=== PATIENT | female | born 1950 | race Caucasian/White ===

== ENCOUNTER → 2017-01-23 | Day surgery (SDC) | payer OTHER ==
[~2017-01-23] MED LIST: Lactated Ringers 1,000 ML IV SCH; Propofol 200 MG/20 ML SDV IV ONE
[2017-01-23 10:10] VITALS: BP 126/58
--- NOTE | 2017-01-23 12:52 | OR ---
DATE OF OPERATION: 01/23/2017 PREOPERATIVE DIAGNOSIS: 1. CHRONIC GASTROESOPHAGEAL REFLUX DISEASE WITH DYSPHAGIA. 2. FOLLOWUP POLYPS. POSTOPERATIVE DIAGNOSIS: 1. CHRONIC GASTROESOPHAGEAL REFLUX DISEASE WITH DYSPHAGIA. 2. FOLLOWUP POLYPS. SURGEON: Trenton Feliz MD PROCEDURE: 1. ESOPHAGOGASTRODUODENOSCOPY WITH BIOPSIES X3, JINA. 2. FULL-LENGTH COLONOSCOPY. ANESTHESIA: PULLMAN CONDUCTOR due to a chronic GERD. COMPLICATIONS: None. SPECIMEN: 1. Antral JINA. 2. Distal esophageal biopsy x3. FINDINGS: 1. Full-length EGD. 2. Moderate to large hiatal hernia with reflux esophagitis, grade 2. 3. Normal full-length colonoscopy. RECOMMENDATIONS: The patient should consider a consultation with Dr. Valencia for lap Suraj. Routine colonoscopy followup in 5 years. INDICATIONS: The patient has a history of some chronic reflux and she has been having some dysphagia. Kathryn sent her for EGD. She is also due for a followup colonoscopy due to history of polyp removal. DESCRIPTION OF PROCEDURE: The patient was prepped and draped, placed in the left lateral decubitus position. A lubricated Olympus gastroscope was inserted over a bit advanced cricopharyngeus area, easily intubated in the esophagus. Esophageal lining was benign until its most distal portion. The patient has reflux esophagitis with small ulceration grade 2 in severity. There was a moderate to large hiatal hernia associated with this with spontaneous reflux visualize. No signs of any stricturing, masses, or Arenas's changes. Three biopsies of the esophagitis were taken. The scope was passed into the stomach through the pylorus into the third portion of duodenum. The duodenal bulb, second and third portion of duodenum were unremarkable. The scope was brought back into the stomach, retroflexed, hernia easily visualized from below. The rest of the upper fundus and cardia appeared unremarkable. Upon straightening, thorough evaluation of the rest of the gastric lining include the mid to distal fundus and antrum were unremarkable. A biopsy was taken for JINA testing. Air was then suctioned from the stomach. The scope removed without complication. A lubricated Olympus colonoscope was inserted and easily advanced to the cecum. Direct visualization of the ileocecal valve and appendiceal orifice was accomplished. The bowel prep was marginal, especially in the right colon, there was a lot of liquid stool throughout very hard to see and some of this was able to be suctioned, a few areas not. Upon withdrawal throughout the entire length of the colon, I could find no signs of any polyp recurrence. There were no masses, ulcerations, or bleeding sites. No vascular abnormalities or signs of colitis. No diverticular disease was seen. Rectal vault was unremarkable. Retroflexion scope in the rectum showed no perianal lesions. Air was then suctioned. Scope removed without complications. RACHELL/MAI /[id number]
== END ==
LOC: CC.SDS 08:30
PROVIDERS: ATTEND Family Medicine
DX: Z12.11 Encounter for screening for malignant neoplasm of colon (principal); K44.9 Diaphragmatic hernia without obstruction or gangrene; K21.0 Gastro-esophageal reflux disease with esophagitis; K22.10 Ulcer of esophagus without bleeding; Z88.1 Allergy status to other antibiotic agents; Z88.2 Allergy status to sulfonamides; F32.9 Major depressive disorder, single episode, unspecified; Z79.82 Long term (current) use of aspirin; Z79.899 Other long term (current) drug therapy; F41.9 Anxiety disorder, unspecified; Z96.659 Presence of unspecified artificial knee joint; Z72.0 Tobacco use
CPT/HCPCS: 43239; 45378; 87081; J2704; J7120

== ENCOUNTER → 2017-03-16 | Day surgery (SDC) | payer OTHER ==
[~2017-03-16] MED LIST changes: +Bupivacaine 0.25% 10 ML SDV INJECT ONE; +Clindamycin Phosphate in D5W 600 MG in Premix Bag 1 BAG IV ONE; +Ketorolac 30 MG/ML SDV IVPUSH ONE; -Lactated Ringers 1,000 ML IV SCH; +Lidocaine 2% 20 ML MDV INJECT ONE; +Midazolam 1 MG/ML 2 ML SDV IV ONE; +Morphine 4 MG/ML Syringe IVPUSH PRN; +Ondansetron 4 MG/2 ML SDV IV ONE; +Ondansetron 4 MG/2 ML SDV IVPUSH PRN; +Rocuronium 50 MG/5 ML Vial IV ONE; +Succinylcholine 200 MG/10 ML MDV IV ONE; +fentaNYL 100 MCG/2 ML SDV IV ONE
[2017-03-16] MEDS: Lactated Ringers 1,000 ML IV SCH ×2 (09:02→14:43)
[2017-03-16] MEDS: Acetaminophen/HYDROcodone 325-5 MG Tab PO PRN (20:08)
[2017-03-17] MEDS: Acetaminophen/HYDROcodone 325-5 MG Tab PO PRN ×2 (00:31→07:55)
[2017-03-17 08:23] VITALS: BP 119/64
--- NOTE | 2017-03-17 09:12 | OR ---
DATE OF OPERATION: 03/16/2017 PREOPERATIVE DIAGNOSIS: LARGE HIATAL HERNIA WITH SEVERE GASTROESOPHAGEAL REFLUX DISEASE. POSTOPERATIVE DIAGNOSIS: LARGE HIATAL HERNIA WITH SEVERE GASTROESOPHAGEAL REFLUX DISEASE. SURGEON: Patrick Valencia MD PROCEDURE: LAPAROSCOPIC SURAJ FUNDOPLICATION. ANESTHESIA: General. INDICATIONS: The patient has had upper GI endoscopy. The patient does show evidence of very severe reflux. The patient even wakes up in the middle of the night with reflux problems. The patient has been on medications without much relief. The patient was given the option for laparoscopic Suraj fundoplication. The procedure and risks were all explained to the patient, she understands. DESCRIPTION OF PROCEDURE: After the patient was anesthetized satisfactorily, the patient's abdomen was prepped with iodoform. The patient was given sterile drapes. A small skin incision was made in the midline. It was carried down through the skin, subcutaneous tissue, down through deep fascia. Deep fascia and peritoneum were opened. An 11-mm blunt trocar was introduced. CO2 gas was insufflated. Then under direct camera vision, two 12-mm trocars were introduced in the right upper quadrant. The patient had quite a few adhesions in the left upper quadrant between the omentum and the parietal peritoneum. These adhesions were taken down with the LigaSure. Then, two 12-mm trocars were also introduced in the left upper quadrant. The patient had has a large hiatal hernia. The liver retractor was introduced and left lobe of the liver was retracted to one side. Then using LigaSure, gastrohepatic ligament was divided. Then dissection was done around the right crux of the diaphragm. All the adhesions over here were taken down. Then hiatal hernia was dissected out from within the hiatus and all the adhesions were taken down and the esophagus was brought back into the peritoneal cavity. There was quite a large hiatal hernia present. Then adhesions were taken off from the left crux of the diaphragm between these hiatal hernia and the left crux of the diaphragm, and these adhesions were also mobilized. Then, a window was created connecting the right side with the left side behind the esophagus. Then short gastric vessels were divided around the fundus of the stomach. Then fundus was brought around through the window connecting the right side to the left side to do laparoscopic Suraj fundoplication. Then using 0 Ethibond sutures, sutures were placed between stomach, esophagus, and stomach, and these were ligated satisfactorily. Three stitches were placed to do Suraj fundoplication. Then hiatus was closed before doing the Suraj fundoplication, a size 56-[place] Paulino dilator was introduced. The light was visualized and then the Suraj fundoplication was done. Then, the hiatus was closed with 0 Ethibond interrupted sutures. Then, bleeding was examined. It was checked. There was no evidence of any active bleeding. The liver retractor was removed. CO2 gas was desufflated out. Various trocars were removed. Then, the dilator had already been removed. The deep fascia was closed with 0 Ethibond running sutures. Skin was closed with jak. The patient was given sterile dressing. She tolerated the procedure well and left the operating room in satisfactory condition. NANCY /[id number]
== END ==
LOC: CC.SDS 08:30
PROVIDERS: ATTEND Surgery
DX: K44.9 Diaphragmatic hernia without obstruction or gangrene (principal); K21.9 Gastro-esophageal reflux disease without esophagitis; F41.9 Anxiety disorder, unspecified; F32.9 Major depressive disorder, single episode, unspecified; J30.9 Allergic rhinitis, unspecified; Z88.1 Allergy status to other antibiotic agents; Z88.2 Allergy status to sulfonamides; Z88.8 Allergy status to other drugs, medicaments and biological substances; Z96.659 Presence of unspecified artificial knee joint; Z72.0 Tobacco use
CPT/HCPCS: 43280; A9270; J0330; J1885; J2250; J2270; J2405; J2704; J3010; J7120

== ENCOUNTER 2017-11-28 21:55 | Emergency (ER) | payer OTHER ==
[2017-11-28] MEDS ORDERED: Ondansetron 4 MG in Sodium Chloride 0.9% 50 ML IV PRN (22:20)
[2017-11-28] MEDS: HYDROmorphone 1 MG/ML Syringe IVPUSH PRN ×2 (22:31→22:50)
--- NOTE | 2017-11-28 22:51 | EDM.PDOC ---
ED HPI GENERAL MEDICAL PROBLEM - General Chief Complaint: Lower Extremity Injury/Pain Stated Complaint: right knee swelling after fall Time Seen by Provider: 11/28/17 22:00 Source of Information: Reports: Patient History Limitations: Reports: No Limitations - History of Present Illness INITIAL COMMENTS - FREE TEXT/NARRATIVE: Patient states she was waling down stairs at home when her leg buckled and twisted under her causing her to fall. she has severe pain to the right thigh that worsens with movement. 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 (see below) (inflatable leg splint) Right Knee Pain Score (Numeric/FACES): 7 - Related Data Allergies Allergy/AdvReac Type Severity Reaction Status Date / Time cephalexin Allergy Cannot Verified 11/28/17 22:02 Remember sulfamethoxazole Allergy Cannot Verified 11/28/17 22:02 [From Bactrim] Remember trimethoprim [From Bactrim] Allergy Cannot Verified 11/28/17 22:02 Remember Home Meds: Home Meds Calcium Carbonate [Tums] 1 tab PO DAILY PRN 05/23/15 [History] PARoxetine HCl [Paroxetine HCl] 20 mg PO DAILY 05/23/15 [History] Multivitamin [Multivitamins] 1 tab PO DAILY 11/15/15 [History] Past Medical History HEENT History: Reports: Impaired Vision Gastrointestinal History: Reports: GERD Psychiatric History: Reports: Anxiety - Past Surgical History GI Surgical History: Reports: Hernia Repair/Other Musculoskeletal Surgical History: Reports: Knee Replacement Social & Family History - Tobacco Use Smoking Status *Q: Never Smoker Second Hand Smoke Exposure: No Review of Systems - Review of Systems Review Of Systems: See Below Constitutional: Reports: No Symptoms Eyes: Reports: No Symptoms Ears: Reports: No Symptoms Nose: Reports: No Symptoms Mouth/Throat: Reports: No Symptoms Respiratory: Reports: No Symptoms Cardiovascular: Reports: No Symptoms GI/Abdominal: Reports: No Symptoms Musculoskeletal: Reports: Leg Pain, Joint Swelling Skin: Reports: Erythema Neurological: Reports: No Symptoms Psychiatric: Reports: No Symptoms ED EXAM, GENERAL - Physical Exam Exam: See Below Free Text/Narrative:: Deformity and swelling noted just above right knee. Exam Limited By: Physical Impairment General Appearance: Alert, WD/WN Head: Atraumatic Neck: Normal Inspection Respiratory/Chest: No Respiratory Distress Cardiovascular: Normal Peripheral Pulses GI/Abdominal: Soft, Non-Tender Rectal (Female) Exam: Normal Exam Extremities: Joint Swelling, Leg Pain, Limited Range of Motion, Redness, Other ( Deformity of leg above knee. good caplilary refill noted in right foot with palpable dorsalis pulse.) Skin Exam: Warm, Dry Front/Back Body Diagram: 1 - Fontana and redness noted. Course - Vital Signs Last Recorded V/S: Last Vital Signs Temp 98.3 F 11/28/17 22:07 Pulse 63 11/28/17 22:07 Resp 16 11/28/17 22:07 BP 117/54 L 11/28/17 22:07 Pulse Ox 97 11/28/17 22:07 - Orders/Labs/Meds Orders: Active Orders 24 hr Category Date Time Status Knee 1V or 2V Rt [CR] Stat Exams 11/28/17 22:13 Taken CBC W/O DIFF,HEMOGRAM [HEME] Stat Lab 11/28/17 22:20 Ordered COMPREHENSIVE METABOLIC PN,CMP [CHEM] Stat Lab 11/28/17 22:20 Ordered HYDROmorphone [Dilaudid] Med 11/28/17 22:20 Active 0.5 mg IVPUSH Q1H PRN Ondansetron [Zofran] 4 mg Med 11/28/17 22:20 Ordered Sodium Chloride 0.9% [Normal Saline] 50 ml IV Q8H Medication Orders Hydromorphone HCl (Dilaudid) 0.5 mg IVPUSH Q1H PRN PRN Reason: Pain Last Admin: 11/28/17 22:31 Dose: 0.5 mg Ondansetron HCl 4 mg/ Sodium (Chloride) 52 mls @ 100 mls/hr IV Q8H PRN PRN Reason: Nausea Last Admin: 11/28/17 22:30 Dose: 100 mls/hr Meds: Medications Generic Name Dose Route Start Last Admin Trade Name Freq PRN Reason Stop Dose Admin Hydromorphone HCl 0.5 mg 11/28/17 22:20 11/28/17 22:31 Dilaudid IVPUSH 0.5 mg Q1H PRN Administration Pain Ondansetron HCl 4 mg/ Sodium 52 mls @ 100 mls/hr 11/28/17 22:20 11/28/17 22: 30 Chloride IV 100 mls/hr Q8H PRN Administration Nausea Departure - Departure Time of Disposition: 22:51 (Transfer arranged to [facility] to the care of Dr. Markham for direct admit.) Disposition: DC/Tfer to [facility] 02 Condition: Good Clinical Impression: Closed fracture of femur - Discharge Information Instructions: Femoral Shaft Fracture Forms: ED Department Discharge - My Orders Last 24 Hours: My Active Orders 11/28/17 22:13 Knee 1V or 2V Rt [CR] Stat 11/28/17 22:20 CBC W/O DIFF,HEMOGRAM [HEME] Stat COMPREHENSIVE METABOLIC PN,CMP [CHEM] Stat HYDROmorphone [Dilaudid] 0.5 mg IVPUSH Q1H PRN Ondansetron [Zofran] 4 mg Sodium Chloride 0.9% [Normal Saline] 50 ml IV Q8H - Assessment/Plan Last 24 Hours: My Active Orders 11/28/17 22:13 Knee 1V or 2V Rt [CR] Stat 11/28/17 22:20 CBC W/O DIFF,HEMOGRAM [HEME] Stat COMPREHENSIVE METABOLIC PN,CMP [CHEM] Stat HYDROmorphone [Dilaudid] 0.5 mg IVPUSH Q1H PRN Ondansetron [Zofran] 4 mg Sodium Chloride 0.9% [Normal Saline] 50 ml IV Q8H
[2017-11-28 22:59] VITALS: BP 107/67
[2017-11-28 23:33] LABS: CHLORIDE,CL 104 mEq/L (98-106); SODIUM,NA 141 mEq/L (136-145)
== END 2017-11-28 23:20 ==
LOC: CC.ED 21:55 → SUPCPDRO 21:55 → CC.ED 23:20
DX: M97.11XA Periprosthetic fracture around internal prosthetic right knee joint, initial encounter (principal); F41.9 Anxiety disorder, unspecified; Z88.1 Allergy status to other antibiotic agents; Z79.899 Other long term (current) drug therapy; Z96.651 Presence of right artificial knee joint; W10.9XXA Fall (on) (from) unspecified stairs and steps, initial encounter; Y92.009 Unspecified place in unspecified non-institutional (private) residence as the place of occurrence of the external cause
CPT/HCPCS: 36415; 73560-RT; 80053; 85027; 85610; 93005; 96365; 96375; 99285; J1170; J2405; J7050

== ENCOUNTER → 2022-06-27 | Day surgery (SDC) | payer MEDICARE, BC ==
[~2022-06-27] MED LIST changes: -Bupivacaine 0.25% 10 ML SDV INJECT ONE; -Clindamycin Phosphate in D5W 600 MG in Premix Bag 1 BAG IV ONE; +Ketamine 200 MG/20 ML MDV ONE; -Ketorolac 30 MG/ML SDV IVPUSH ONE; +Lactated Ringers 1,000 ML IV SCH; -Lidocaine 2% 20 ML MDV INJECT ONE; +Lidocaine 2% 20 ML MDV ONE; -Midazolam 1 MG/ML 2 ML SDV IV ONE; -Morphine 4 MG/ML Syringe IVPUSH PRN; -Ondansetron 4 MG/2 ML SDV IV ONE; -Ondansetron 4 MG/2 ML SDV IVPUSH PRN; -Propofol 200 MG/20 ML SDV IV ONE; +Propofol 200 MG/20 ML SDV ONE; -Rocuronium 50 MG/5 ML Vial IV ONE; -Succinylcholine 200 MG/10 ML MDV IV ONE; -fentaNYL 100 MCG/2 ML SDV IV ONE; +fentaNYL 50 MCG/ML SDV ONE
[2022-06-27 11:29] VITALS: BP 111/52; PULSE 55
== END ==
LOC: CC.SDS 08:07
PROVIDERS: ATTEND Family Medicine
DX: Z12.11 Encounter for screening for malignant neoplasm of colon (principal); K22.10 Ulcer of esophagus without bleeding; K57.30 Diverticulosis of large intestine without perforation or abscess without bleeding; K21.9 Gastro-esophageal reflux disease without esophagitis; K44.9 Diaphragmatic hernia without obstruction or gangrene; K22.2 Esophageal obstruction; F32.A Depression, unspecified; E55.9 Vitamin D deficiency, unspecified; M85.80 Other specified disorders of bone density and structure, unspecified site; F41.9 Anxiety disorder, unspecified; R82.90 Unspecified abnormal findings in urine; Z88.1 Allergy status to other antibiotic agents; Z98.890 Other specified postprocedural states; Z88.8 Allergy status to other drugs, medicaments and biological substances; Z79.899 Other long term (current) drug therapy
CPT/HCPCS: 00813; 43239; 87081; 88305; G0121; J2704; J3010; J7120

== ENCOUNTER 2022-06-30 00:05 | Emergency (ER) | payer MEDICARE, BC ==
[2022-06-30] MEDS ORDERED: Ondansetron 4 MG/2 ML SDV IVPUSH PRN (00:38)
[2022-06-30] MEDS ORDERED: Sodium Chloride 0.9% 500 ML IV SCH (00:45)
[2022-06-30] MEDS ORDERED: Sodium Chloride 0.9% 10 ML Syringe FLUSH PRN (00:48)
[2022-06-30] MEDS ORDERED: Morphine 2 MG/ML SYRINGE IVPUSH ONE (00:50)
[2022-06-30 01:05] LABS: CHLORIDE,CL 103 mEq/L (98-106); ESTIMATED GFR 78 mL/min (>=60); SODIUM,NA 141 mEq/L (136-145)
[2022-06-30] MEDS ORDERED: Ondansetron 4 MG/2 ML SDV ONE (01:08)
[2022-06-30] MEDS ORDERED: Ketorolac 30 MG/ML SDV IVPUSH ONE (01:19)
[2022-06-30] MEDS ORDERED: Tamsulosin 0.4 MG Cap.ER PO STA (02:31)
[2022-06-30] MEDS ORDERED: Take Home: Acetaminophen/HYDROcodone 325-5 MG, 2 Tab Pack PO ONE (02:31)
[2022-06-30] MEDS ORDERED: Take Home: Ondansetron 4 MG Tab.DIS, 2 Tab Pack PO ONE (02:54)
[2022-06-30] MEDS ORDERED: Ondansetron 4 MG Tab.DIS PO STA (02:56)
[2022-06-30 03:01] VITALS: BP 143/74; PULSE 80
== END 2022-06-30 03:01 | disposition home or self-care (01) ==
LOC: CC.ED 00:30
DX: N20.1 Calculus of ureter (principal); R91.1 Solitary pulmonary nodule; K21.9 Gastro-esophageal reflux disease without esophagitis; Z88.1 Allergy status to other antibiotic agents; Z88.2 Allergy status to sulfonamides; Z79.899 Other long term (current) drug therapy
CPT/HCPCS: 36415; 74176; 80053; 81001; 82150; 83690; 85025; 96374; 96375; 99284; 99284-25; A9270-GY; J1885; J2270; J2405; J7040